=== PATIENT | male | born 1990 | race Caucasian/White ===

== ENCOUNTER → 2021-02-15 16:42 | Outpatient (CLI) | payer SELFPAY ==
--- NOTE | 2021-02-15 16:47 | RAD_ITS ---
STUDY: X-RAY - RIGHT ANKLE REASON FOR EXAM: Male, 30 years old. PAIN TECHNIQUE: 3 view(s) of the ankle. COMPARISON: None. FINDINGS: Normal visualized distal tibia and fibula. Normal medial and lateral malleoli. Normal tibiotalar articulation and ankle mortise. Normal visualized talus and calcaneus. The visualized subtalar, talonavicular, calcaneocuboid and tarsal articulations are normal. There is no demonstrated fracture. Soft tissue swelling surrounding the ankle. RAD/Ankle min 3 Views IMPRESSION: Soft tissue swelling as described, otherwise normal x-ray examination of the ankle. Electronically Signed: Renetta Davis MD at 2:29 EDT , Service support ,
== END ==
PROVIDERS: PCP Family Medicine; Referring Provider Family Medicine; Visit Provider Family Medicine
DX: M25.571 Pain in right ankle and joints of right foot (principal)
CPT/HCPCS: 73610

== ENCOUNTER 2021-12-01 14:27 | Outpatient (CLI) | payer SELFPAY ==
--- NOTE | 2021-12-01 15:02 | CT_ITS ---
We are attempting to reach an attending provider to discuss findings. An addendum with communication details will be sent when the communication is complete. INDICATION: RLQ PAIN EXAMINATION: CT ABDOMEN AND PELVIS WITHOUT CONTRAST - CT Abdomen And Pelvis W/O Contrast Injection TECHNIQUE: Helically acquired images were obtained of the abdomen and pelvis without oral or IV contrast. A radiation dose optimization technique was used for this scan. IV Contrast dosage and agent: None. Oral contrast: None. COMPARISON: None. FINDINGS: Assessment somewhat limited without IV contrast. Lower thorax: Visualized lung bases are clear. Liver: Normal morphology. No acute findings. Gallbladder: Normal appearance. Spleen: Unremarkable. Pancreas: No duct dilation. No acute findings. Adrenal glands: Unremarkable. Kidneys: 0.7 cm and a separate 0.6 cm obstructing calculi in the mid to proximal right ureter causing moderate associated right-sided hydroureteronephrosis. Additional nonobstructive bilateral nephrolithiasis, with the largest measuring up to 0.5 cm in the right lower pole and 0.9 cm in the left lower pole. Bladder: Normal appearance. GI tract: No significant bowel dilation. Normal appendix. Peritoneum/mesentery/retroperitoneum: There are a few mildly enlarged likely reactive lymph nodes in the right abdominal mesentery. No free air or free fluid. Trace right perinephric reactive changes. Small fat-containing helical hernia. Pelvis: Small bilateral fat-containing inguinal hernias. No free air or free fluid. Vasculature: Minimal arterial atherosclerotic disease. No abdominal aortic or iliac aneurysm. Bones/soft tissues: No acute fracture or subluxation. No destructive osseous lesions. Soft tissues are unremarkable. CT/Abdomen/Pelvis without Cont IMPRESSION: 1. 0.7 cm and a separate 0.6 cm obstructing calculi in the mid to proximal right ureter causing moderate associated right-sided hydroureteronephrosis. 2. Additional nonobstructive bilateral nephrolithiasis. 3. No other acute findings. Electronically Signed: Lloyd Rubio, at 15:36 EDT ,
[2021-12-01 15:22] LABS: Bacteria 0 SEEN /hpf (None Seen); Mucous, Urine 0 SEEN /hpf (<or=2+); Red Blood Cells-Urine 0 SEEN /hpf (0-5); Squamous Epithelial Cells - UA 0 SEEN /hpf (0-5); White Blood Cells 0 SEEN /hpf (0-5)
[2021-12-01 16:11] LABS: Color, Urine Yellow (Yellow); Glucose, Dipstick Normal (Normal); Ketone-Dipstick Negative (Negative); Leukocyte Esterase-Dipstick Negative /ul (Negative); Nitrite-Dipstick Negative (Negative); Occult Blood-Urine 25 /ul (Negative); Protein-Dipstick Negative (Negative); Specific Gravity, Urine 1.005 (1.002-1.030); Urine Bilirubin Dipstick Negative (Negative); Urine Clarity Clear (Clear); Urine Urobilinogen Normal (Normal)
[2021-12-01 16:24] LABS: Absolute Lymphocyte Count 2.37 X10^3/uL (0.83-4.51); Absolute Neutrophil Count 8.7 X10^3/uL (2.0-7.7); Basophil# 0.03 X10^3/uL; Basophil% 0.2 % (0-1); Eosinophil# 0.09 X10^3/uL; Eosinophils% 0.7 % (0-5); Hematocrit 46.7 % (40-54); Hemoglobin 16.3 g/dL (13.0-16.5); Lymphocyte # 2.37 X10^3/ul (0.83-4.51); Lymphocyte % 19.4 % (19-41); Mean Corp Hgb Conc 34.9 g/dL (32-36); Mean Corpuscular Hgb 29.7 pg (27.0-32.0); Mean Corpuscular Volume 85.1 fL (80-94); Monocyte# 1.01 X10^3/uL; Monocyte% 8.3 % (0-10); NRBC Flagged by Analyzer 0 % (0-5); Neutrophil # 8.68 X10^3/uL (2.7-7.7); Platelet Count 314 K/mm3 (150-450); RBC Distribution Width CV 12.6 % (11.6-14.6); RBC Distribution Width SD 38.9 fl (35.1-43.9); Red Blood Count 5.49 M/mm3 (4.6-6.2); White Blood Count 12.2 K/mm3 (4.4-11.0)
[2021-12-01 17:00] LABS: ALB/GLOB Ratio 1.4 RATIO (0.9-2.4); AST(SGOT) 20 U/L (15-37); Alanine Aminotransfer ALT/SGPT 33 U/L (16-61); Albumin, Serum 4.2 g/dL (3.2-5.0); Alkaline Phosphatase 62 U/L (45-117); Anion Gap 3 (5-15); BUN 10 mg/dL (7-18); BUN/Creat Ratio 8.2 RATIO (10-20); Calcium,Total 9.2 mg/dL (8.5-10.1); Chloride 106 mmol/L (98-107); Creatinine, Serum 1.22 mg/dL (0.70-1.30); EST Glomerular Filtration Rate 74 mL/min (>60); Est Glom Filt Rate - Afr Amer 89 mL/min (>60); Globulin 3.1 g/dL (2.2-4.2); Glucose 95 mg/dL (74-106); Potassium 4.2 mmol/L (3.5-5.1); Protein, Total 7.3 g/dL (6.4-8.2); Sodium Level 139 mmol/L (136-145)
== END 2021-12-01 23:59 | disposition home or self-care (01) ==
PROVIDERS: PCP Family Medicine; Referring Provider Family Medicine; Visit Provider Family Medicine
DX: R10.31 Right lower quadrant pain (principal)
CPT/HCPCS: 36415; 74176; 80053; 81001; 85025

== ENCOUNTER → 2022-02-20 | Outpatient (CLI) | payer SELFPAY | END | disposition home or self-care (01) | LOC: SDC 10:52 | PROVIDERS: PCP Family Medicine; Visit Provider Urology | DX: N20.2 Calculus of kidney with calculus of ureter (principal); Z53.20 Procedure and treatment not carried out because of patient's decision for unspecified reasons; J45.20 Mild intermittent asthma, uncomplicated ==

== ENCOUNTER → 2022-03-17 | Outpatient (CLI) | payer SELFPAY | END | disposition home or self-care (01) | PROVIDERS: PCP Family Medicine; Visit Provider Family Medicine | DX: N20.0 Calculus of kidney (principal) | CPT/HCPCS: 82360 ==